=== PATIENT | female | born 1955 | race African-American/Black ===

== ENCOUNTER 2021-04-07 19:37 | Emergency (ER) | payer MEDICARE, OTHER ==
[2021-04-07 20:50] LABS: BASOPHIL 0.2 % (0-2); EOSINOPHIL 3.1 % (0-7); HCT 30.7 % (37.0-47.0); HGB 9.4 g/dl (12.5-16.0); LYMPHOCYTE 5.9 % (15-48); MCH 24.9 pg (25.0-31.0); MCHC 30.6 g/dL (32.0-36.0); MCV 81.2 fL (78.0-100.0); MONOCYTE 8.2 % (0-12); MPV 10.1 fL (6.0-9.5); NEUTROPHIL 81.6 % (41-80); NRBC 0.2; PLT 186 K/uL (150-400); RBC 3.78 M/uL (4.20-5.40); RDW 17.2 % (11.5-14.0); WBC 8.8 K/uL (4.0-10.5)
[2021-04-07 21:07] LABS: ALBUMIN 2.6 g/dL (3.4-5.0); BILIRUBIN - TOTAL 0.6 mg/dL (0.2-1.0); BUN/CREAT RATIO (CALC) 10.6 RATIO; CREATININE 0.94 mg/dL (0.51-0.95); GLOBULIN (CALCULATION) 3.7 g/dL; TOTAL PROTEIN 6.3 g/dL (6.4-8.2)
[2021-04-07 21:12] LABS: LACTIC ACID 1.5 mmol/L (0.4-1.9)
[2021-04-07 21:59] LABS: MAGNESIUM 1.8 mg/dL (1.8-2.4); PHOSPHORUS 1.5 mg/dL (2.6-4.7)
[2021-04-08 00:10] LABS: BILIRUBIN 2+ mg/dL (NEGATIVE); BLOOD 3+ Ery/uL (NEGATIVE); CLARITY CLOUDY (CLEAR); COLOR YELLOW (YELLOW); GLUCOSE (U) NORMAL (NORMAL); LEUKOCYTES 2+ Leu/uL (NEGATIVE); NITRITE NEGATIVE (NEGATIVE); PROTEIN 1+ mg/dL (NEGATIVE)
[2021-04-08] MEDS ORDERED: MACRODANTIN50 MG PO (00:39)
[2021-04-08 00:41] LABS: BACTERIA 1+; URINARY RBC 20-50; URINARY WBC TNTC
[2021-04-09] MEDS ORDERED: VALSARTAN160 MG PO (04:50)
[2021-04-09] MEDS ORDERED: HCTZ25 MG PO (04:51)
[2021-04-09] MEDS ORDERED: DILTIAZEM 24HR240 M1 PO (04:51)
[2021-04-09] MEDS ORDERED: EZETIMIBE10 MG PO (04:52)
[2021-04-09] MEDS ORDERED: LASIX80 MG PO (04:53)
[2021-04-09] MEDS ORDERED: MELOXICAM15 MG PO (04:53)
[2021-04-09] MEDS ORDERED: OXYBUTYNIN CHLOR5 MG PO (04:55)
[2021-04-09] MEDS ORDERED: PANTOPRAZOLE SO40 MG PO (04:56)
[2021-04-09] MEDS ORDERED: SIMVASTATIN40 MG PO (04:57)
[2021-04-09] MEDS ORDERED: POTASSIUM CHLO10 ME1 PO (04:57)
== END 2021-04-08 01:30 | disposition home or self-care (01) ==
LOC: FER 19:37
PROVIDERS: Emergency Medicine
DX: R53.1 Weakness (principal); N39.0 Urinary tract infection, site not specified; I10 Essential (primary) hypertension; Z20.822 Contact with and (suspected) exposure to COVID-19; Z98.84 Bariatric surgery status; Z98.890 Other specified postprocedural states
CPT/HCPCS: 36415; 71045; 80053; 81001; 83605; 83735; 84100; 85025; 87040; 87076; 87088; 87186; J0696; J7030

== ENCOUNTER 2021-04-08 22:00 | Day surgery (SDCO) | payer MEDICARE, OTHER ==
[~2021-04-08] VITALS: Ht 154.9 cm; Wt 200.1 kg
[~2021-04-08 22:00] MED LIST: MACRODANTIN50 MG PO
[2021-04-09] MEDS ORDERED: VALSARTAN160 MG PO (04:50)
[2021-04-09] MEDS ORDERED: HCTZ25 MG PO (04:51)
[2021-04-09] MEDS ORDERED: DILTIAZEM 24HR240 M1 PO (04:51)
[2021-04-09] MEDS ORDERED: EZETIMIBE10 MG PO (04:52)
[2021-04-09] MEDS ORDERED: LASIX80 MG PO (04:53)
[2021-04-09] MEDS ORDERED: MELOXICAM15 MG PO (04:53)
[2021-04-09] MEDS ORDERED: OXYBUTYNIN CHLOR5 MG PO (04:55)
[2021-04-09] MEDS ORDERED: PANTOPRAZOLE SO40 MG PO (04:56)
[2021-04-09] MEDS ORDERED: SIMVASTATIN40 MG PO (04:57)
[2021-04-09] MEDS ORDERED: POTASSIUM CHLO10 ME1 PO (04:57)
--- NOTE | 2021-04-09 11:43 | NUR ---
ADVISED DR. DRISCOLL PT. IS OBS. HE IS UNSURE AT THIS TIME IS HE WILL CHANGE HER TO INPT OR NOT.
[2021-04-10 05:30] LABS: BASOPHIL 0.5 % (0-2); EOSINOPHIL 5.6 & (0-7); HCT 32.5 % (37.0-47.0); LYMPHOCYTE 10.2 % (15-48); MCH 24.4 pg (25.0-31.0); MCHC 30.8 g/dL (32.0-36.0); MCV 79.5 fL (78.0-100.0); MONOCYTE 9.8 % (0-12); MPV 10.2 fL (6.0-9.5); NEUTROPHIL 69.4 % (41-80); PLT 238 K/uL (150-400); RBC 4.09 M/uL (4.20-5.40); RDW 16.8 % (11.5-14.0); WBC 7.98 K/uL (4.0-10.5)
[2021-04-10 05:47] LABS: BUN/CREAT RATIO (CALC) 10.9 RATIO; CREATININE 0.64 mg/dL (0.51-0.95); POTASSIUM 3.7 mmol/L (3.5-5.1)
== END 2021-04-11 23:19 | disposition other institution (70) ==
LOC: FER 22:00 → FMS 04-09 01:24
PROVIDERS: Nurse Practitioner; ADMIT Internal Medicine
DX: R29.6 Repeated falls (principal); R26.89 Other abnormalities of gait and mobility; N30.01 Acute cystitis with hematuria; I10 Essential (primary) hypertension; K21.9 Gastro-esophageal reflux disease without esophagitis; M19.90 Unspecified osteoarthritis, unspecified site; G47.30 Sleep apnea, unspecified; E66.01 Morbid (severe) obesity due to excess calories; Z98.84 Bariatric surgery status; Z79.899 Other long term (current) drug therapy; Z20.822 Contact with and (suspected) exposure to COVID-19; Z86.79 Personal history of other diseases of the circulatory system
CPT/HCPCS: 36415; 73560; 73610; 80048; 85025; 97110; 97161; 97166; 97530-GP; 97535; G0378; J0696; J2405; J7030; Q0169; U0002

== ENCOUNTER 2021-04-16 17:34 | Day surgery (SDCO) | payer MEDICARE, OTHER ==
[~2021-04-16] VITALS: Ht 154.9 cm; Wt 203.2 kg
[~2021-04-16 17:34] MED LIST changes: +DILTIAZEM 24HR240 M1 PO; +EZETIMIBE10 MG PO; +HCTZ25 MG PO; +LASIX80 MG PO; +MELOXICAM15 MG PO; +OXYBUTYNIN CHLOR5 MG PO; +PANTOPRAZOLE SO40 MG PO; +POTASSIUM CHLO10 ME1 PO; +SIMVASTATIN40 MG PO; +VALSARTAN160 MG PO
[2021-04-16 18:39] LABS: BASOPHIL 0.3 % (0-2); EOSINOPHIL 0.5 % (0-7); HCT 39.2 % (37.0-47.0); HGB 11.8 g/dl (12.5-16.0); MCH 24.3 pg (25.0-31.0); MCHC 30.1 g/dL (32.0-36.0); MCV 80.7 fL (78.0-100.0); MONOCYTE 2.5 % (0-12); MPV 10.1 fL (6.0-9.5); NEUTROPHIL 89.9 % (41-80); NRBC 0.7; PLT 329 K/uL (150-400); RBC 4.86 M/uL (4.20-5.40); RDW 18.4 % (11.5-14.0); WBC 18.9 K/uL (4.0-10.5)
[2021-04-16 19:05] LABS: BILIRUBIN - TOTAL 0.9 mg/dL (0.2-1.0); BUN/CREAT RATIO (CALC) 6.6 RATIO; CREATININE 0.76 mg/dL (0.51-0.95); GLOBULIN (CALCULATION) 5.1 g/dL; POTASSIUM 5.3 mmol/L (3.5-5.1); TOTAL PROTEIN 8.1 g/dL (6.4-8.2)
[2021-04-17 02:42] LABS: BILIRUBIN 2+ mg/dL (NEGATIVE); BLOOD 1+ Ery/uL (NEGATIVE); CLARITY CLEAR (CLEAR); COLOR YELLOW (YELLOW); GLUCOSE (U) NORMAL (NORMAL); LEUKOCYTES NEGATIVE Leu/uL (NEGATIVE); NITRITE NEGATIVE (NEGATIVE); PROTEIN NEGATIVE (NEGATIVE); SPECIFIC GRAVITY 1.025 (1.001-1.030); UROBILINOGEN 0.2 mg/dL (0.2-1.0)
[2021-04-17 02:49] LABS: BACTERIA 1+; MUCOUS MODERATE; URINARY RBC 20-50; URINARY WBC 20-50
[2021-04-17 05:56] LABS: BASOPHIL 0.3 % (0-2); EOSINOPHIL 1.5 % (0-7); HCT 29.2 % (37.0-47.0); HGB 8.8 g/dl (12.5-16.0); LYMPHOCYTE 5.1 % (15-48); MCH 24.1 pg (25.0-31.0); MCHC 30.1 g/dL (32.0-36.0); MONOCYTE 3.7 % (0-12); MPV 10.1 fL (6.0-9.5); NEUTROPHIL 87.8 % (41-80); NRBC 0.4; PLT 266 K/uL (150-400); RBC 3.65 M/uL (4.20-5.40); RDW 17.9 % (11.5-14.0); WBC 14.3 K/uL (4.0-10.5)
[2021-04-17 06:11] LABS: BUN/CREAT RATIO (CALC) 7.8 RATIO; CREATININE 0.64 mg/dL (0.51-0.95)
[2021-04-17 06:17] LABS: POTASSIUM 3.5 mmol/L (3.5-5.1)
[2021-04-18 06:08] LABS: BASOPHIL 0.2 % (0-2); EOSINOPHIL 4.8 % (0-7); HCT 29.3 % (37.0-47.0); HGB 8.9 g/dl (12.5-16.0); LYMPHOCYTE 8.2 % (15-48); MCH 23.9 pg (25.0-31.0); MCHC 30.4 g/dL (32.0-36.0); MCV 78.8 fL (78.0-100.0); MPV 10.2 fL (6.0-9.5); NEUTROPHIL 76.3 % (41-80); NRBC 0.4; PLT 277 K/uL (150-400); RBC 3.72 M/uL (4.20-5.40); RDW 17.6 % (11.5-14.0); WBC 8.1 K/uL (4.0-10.5)
[2021-04-18 06:24] LABS: BUN/CREAT RATIO (CALC) 5.1 RATIO; CREATININE 0.59 mg/dL (0.51-0.95); MAGNESIUM 1.8 mg/dL (1.8-2.4); POTASSIUM 3.8 mmol/L (3.5-5.1)
--- NOTE | 2021-04-18 13:04 | NUR ---
PT ADVISED NURSE, ABELARDO, THAT [facility] HAD CONTACTED HER AND ADVISED THAT SHE HAD BEEN ACCEPTED AT [facility]. TC TO JORGE AT [facility] [phone]. HE ADVISED ME THAT PT HAS BEEN ACCPETED AND MAY COME TODAY. ADVISED NURSE, ABELARDO AND DR. HERNANDEZ. PLEASE CALL [phone] FOR REPORT AND FAX DC SUMMARY TO [phone]
[2021-04-18] MEDS ORDERED: CEFDINIR300 MG PO (14:00)
== END 2021-04-18 17:10 ==
LOC: FER 17:34 → FMS 19:47
PROVIDERS: Emergency Medicine; Family Medicine; Hospitalist; ADMIT Internal Medicine
DX: A41.9 Sepsis, unspecified organism (principal); N30.01 Acute cystitis with hematuria; I89.0 Lymphedema, not elsewhere classified; R53.81 Other malaise; R29.6 Repeated falls; D64.9 Anemia, unspecified; I10 Essential (primary) hypertension; E78.5 Hyperlipidemia, unspecified; E66.01 Morbid (severe) obesity due to excess calories; M17.0 Bilateral primary osteoarthritis of knee; Z99.81 Dependence on supplemental oxygen; Z98.84 Bariatric surgery status; Z68.45 Body mass index [BMI] 70 or greater, adult; Z88.5 Allergy status to narcotic agent; Z88.1 Allergy status to other antibiotic agents; Z88.8 Allergy status to other drugs, medicaments and biological substances; Z79.891 Long term (current) use of opiate analgesic; Z79.899 Other long term (current) drug therapy; Z20.822 Contact with and (suspected) exposure to COVID-19
CPT/HCPCS: 36415; 71045; 73560; 80048; 80053; 81001; 83605; 83735; 83880; 84145; 85025; 87040; 87088; 90471; 90715; 94010; C9113; G0378; J0692; J1650; J3480; J7030; U0002

== ENCOUNTER 2021-12-17 06:53 | Inpatient (IN) | payer MEDICARE, OTHER ==
[~2021-12-17] VITALS: Ht 160 cm; Wt 192.1 kg
[~2021-12-17 06:53] MED LIST changes: +CEFDINIR300 MG PO
[2021-12-17 07:49] LABS: BASOPHIL 0.1 % (0-2); EOSINOPHIL 0.1 % (0-7); HCT 37.2 % (37.0-47.0); HGB 11.6 g/dl (12.5-16.0); LYMPHOCYTE 1.3 % (15-48); MCH 24.1 pg (25.0-31.0); MCHC 31.2 g/dL (32.0-36.0); MCV 77.2 fL (78.0-100.0); MONOCYTE 0.6 % (0-12); MPV 10.8 fL (6.0-9.5); NRBC 0; PLT 146 K/uL (150-400); RBC 4.82 M/uL (4.20-5.40); RDW 20.3 % (11.5-14.0); WBC 18.8 K/uL (4.0-10.5)
[2021-12-17 08:33] LABS: CORONAVIRUS 2019 SARS-COV-2 NEGATIVE (NEGATIVE); INFLUENZA A NAA NEGATIVE (NEGATIVE)
[2021-12-17 08:33] LABS: TOTAL CELL COUNT 100
[2021-12-17 08:37] LABS: BAND 3 % (0-10); LYMPHOCYTE(M) 3 % (15-48); MONOCYTE(M) 2 % (0-12); NEUTROPHILS(M) 85 % (41-80)
[2021-12-17 08:38] LABS: METAMYELOCYTE 6; MYELOCYTE 2; PLATELET ESTIMATE NORMAL; PLATELET MORPHOLOGY NORMAL
[2021-12-17 08:44] LABS: BILIRUBIN NEGATIVE (NEGATIVE); BLOOD 3+ Ery/uL (NEGATIVE); CLARITY CLEAR (CLEAR); COLOR YELLOW (YELLOW); GLUCOSE (U) NORMAL (NORMAL); LEUKOCYTES 2+ Leu/uL (NEGATIVE); NITRITE NEGATIVE (NEGATIVE); PROTEIN 1+ mg/dL (NEGATIVE); SPECIFIC GRAVITY 1.025 (1.001-1.030); UROBILINOGEN 0.2 mg/dL (0.2-1.0)
[2021-12-17 08:48] LABS: INR 1.72 (0.9-1.2); PROTHROMBIN TIME 19.4 SECONDS (11.8-13.4); PTT 56.9 SECONDS (24.4-34.7)
[2021-12-17 08:49] LABS: BACTERIA 4+; URINARY RBC 20-50; URINARY WBC 20-50
[2021-12-17 09:04] LABS: LACTIC ACID 8.3 mmol/L (0.4-1.9)
[2021-12-17 09:07] LABS: ALBUMIN 2.9 g/dL (3.4-5.0); BILIRUBIN - TOTAL 0.6 mg/dL (0.2-1.0); CREATININE 2.11 mg/dL (0.51-0.95); GLOBULIN (CALCULATION) 3.1 g/dL; POTASSIUM 3.2 mmol/L (3.5-5.1)
[2021-12-17 15:50] LABS: PHOSPHORUS 4.8 mg/dL (2.6-4.7); POTASSIUM 3.3 mmol/L (3.5-5.1)
--- NOTE | 2021-12-17 18:35 | NUR ---
BP MAP WERE LESS THAN 60 AND WAS NOTIFIED. LEVO WAS ORDERED AND TITRATED TO 6MCG/22.5ML HAD DIFFICULTY GETTING MONITOR TO TAKE PRESSURES PROPERLY MANUALS WERE DONE TO CONFIRM PATIENT WAS NOT ARTERIAL LINE CANDIDATE DUE TO ACTIVITY IN BED
[2021-12-18 04:28] LABS: BASOPHIL 0.5 % (0-2); EOSINOPHIL 0.1 % (0-7); HCT 36.6 % (37.0-47.0); HGB 11.3 g/dl (12.5-16.0); LYMPHOCYTE 2.3 % (15-48); MCHC 30.9 g/dL (32.0-36.0); MCV 77.7 fL (78.0-100.0); MONOCYTE 3.5 % (0-12); NRBC 0; PLT 106 K/uL (150-400); RBC 4.71 M/uL (4.20-5.40); WBC 24.5 K/uL (4.0-10.5)
[2021-12-18 04:40] LABS: NEUTROPHIL 85.9 % (41-80)
[2021-12-18 04:41] LABS: BUN/CREAT RATIO (CALC) 20.7 RATIO; CREATININE 2.22 mg/dL (0.51-0.95); PHOSPHORUS 4.8 mg/dL (2.6-4.7); POTASSIUM 3.9 mmol/L (3.5-5.1)
[2021-12-18] MEDS ORDERED: VALSARTAN160 MG PO (08:22)
[2021-12-18] MEDS ORDERED: CERTAVITE-ANTI1 EACH PO (08:23)
[2021-12-18] MEDS ORDERED: 3IN1 COMMODE (08:23)
--- NOTE | 2021-12-18 21:15 | NUR ---
PT DECLINED TO TAKE HER OXYBUTYNIN 5MG. SAYS SHE "DOESN'T NEED IT UNLESS SHE TAKES HER WATER PILL"
[2021-12-19 06:43] LABS: BASOPHIL 0.3 % (0-2); EOSINOPHIL 1.1 % (0-7); HCT 34.2 % (37.0-47.0); MCH 23.8 pg (25.0-31.0); MCHC 29.2 g/dL (32.0-36.0); MCV 81.2 fL (78.0-100.0); MONOCYTE 2.9 % (0-12); NRBC 0; PLT 69 K/uL (150-400); RBC 4.21 M/uL (4.20-5.40); RDW 20.6 % (11.5-14.0)
[2021-12-19 06:49] LABS: NEUTROPHIL 91.9 % (41-80); WBC 20.2 K/uL (4.0-10.5)
[2021-12-19 07:05] LABS: CREATININE 1.92 mg/dL (0.51-0.95); MAGNESIUM 2.1 mg/dL (1.8-2.4); POTASSIUM 3.6 mmol/L (3.5-5.1)
--- NOTE | 2021-12-19 10:49 | NUR ---
12/19/21 Ms. Christianson's daughter, Alesha Watson, lives in the home. They share the household responsibilities. - Ms. Christianson has PCP, Karol Liard. - She has a C-PAP and rollator. Will monitor for 02 needs.
[2021-12-20 04:04] LABS: BASOPHIL 0.4 % (0-2); EOSINOPHIL 2.5 % (0-7); HCT 30.5 % (37.0-47.0); HGB 9.6 g/dl (12.5-16.0); LYMPHOCYTE 5.4 % (15-48); MCH 24.1 pg (25.0-31.0); MCHC 31.5 g/dL (32.0-36.0); MCV 76.4 fL (78.0-100.0); MONOCYTE 4.6 % (0-12); NEUTROPHIL 86.4 % (41-80); NRBC 0; PLT 99 K/uL (150-400); RBC 3.99 M/uL (4.20-5.40); RDW 19.9 % (11.5-14.0); WBC 19.3 K/uL (4.0-10.5)
[2021-12-20 04:22] LABS: BUN/CREAT RATIO (CALC) 25.9 RATIO; CREATININE 1.58 mg/dL (0.51-0.95); MAGNESIUM 2.1 mg/dL (1.8-2.4); PHOSPHORUS 3.1 mg/dL (2.6-4.7); POTASSIUM 3.5 mmol/L (3.5-5.1)
[2021-12-21 08:23] LABS: BASOPHIL 0.5 % (0-2); EOSINOPHIL 2.8 % (0-7); HCT 31.8 % (37.0-47.0); HGB 9.7 g/dl (12.5-16.0); MCHC 30.5 g/dL (32.0-36.0); MCV 78.5 fL (78.0-100.0); MONOCYTE 10.8 % (0-12); NRBC 0.2; PLT 101 K/uL (150-400); RBC 4.05 M/uL (4.20-5.40); RDW 20.5 % (11.5-14.0); RETICULOCYTE COUNT 0.9 % (1.0-2.0); WBC 13.3 K/uL (4.0-10.5)
[2021-12-21 08:24] LABS: NEUTROPHIL 75.1 % (41-80)
[2021-12-21 13:29] LABS: BUN/CREAT RATIO (CALC) 23.8 RATIO; C-REACTIVE PROTEIN 10.7 mg/dL (<=0.90); CREATININE 1.26 mg/dL (0.51-0.95); POTASSIUM 4.2 mmol/L (3.5-5.1)
[2021-12-22 07:28] LABS: BASOPHIL 0.4 % (0-2); EOSINOPHIL 2.5 % (0-7); HCT 31.6 % (37.0-47.0); HGB 9.9 g/dl (12.5-16.0); LYMPHOCYTE 6.6 % (15-48); MCHC 31.3 g/dL (32.0-36.0); MCV 76.5 fL (78.0-100.0); MONOCYTE 13.2 % (0-12); MPV 10.8 fL (6.0-9.5); NEUTROPHIL 70.2 % (41-80); NRBC 0.3; PLT 130 K/uL (150-400); RBC 4.13 M/uL (4.20-5.40); RDW 19.8 % (11.5-14.0); WBC 14.6 K/uL (4.0-10.5)
[2021-12-22 07:50] LABS: ALBUMIN 1.9 g/dL (3.4-5.0); BILIRUBIN - TOTAL 0.2 mg/dL (0.2-1.0); BUN/CREAT RATIO (CALC) 17.6 RATIO; CREATININE 1.08 mg/dL (0.51-0.95); GLOBULIN (CALCULATION) 4.2 g/dL; MAGNESIUM 1.8 mg/dL (1.8-2.4); PHOSPHORUS 3.1 mg/dL (2.6-4.7); POTASSIUM 3.5 mmol/L (3.5-5.1); TOTAL PROTEIN 6.1 g/dL (6.4-8.2)
--- NOTE | 2021-12-22 10:07 | NUR ---
12/22/21 SNF recommendation was discussed with Ms. Christianson. She will consider placement in [place] only. Referrals have been submitted to [facility] is not in network with ,
--- NOTE | 2021-12-22 16:27 | NUR ---
12/22/21 [facility] has accepted patient pending insurance authorization.
[2021-12-23 06:42] LABS: BASOPHIL 0.5 % (0-2); EOSINOPHIL 2.8 % (0-7); HGB 9.9 g/dl (12.5-16.0); LYMPHOCYTE 6.6 % (15-48); MCH 23.9 pg (25.0-31.0); MCHC 30.9 g/dL (32.0-36.0); MCV 77.1 fL (78.0-100.0); MONOCYTE 8.6 % (0-12); MPV 10.6 fL (6.0-9.5); NRBC 0.6; PLT 184 K/uL (150-400); RBC 4.15 M/uL (4.20-5.40); RDW 19.9 % (11.5-14.0); WBC 16.2 K/uL (4.0-10.5)
[2021-12-23 07:18] LABS: BUN 18 mg/dL (7-18); BUN/CREAT RATIO (CALC) 18.8 RATIO; C-REACTIVE PROTEIN > 18.00 mg/dL (<=0.90); CHLORIDE 108 mmol/L (98-107); CO2 (BICARBONATE) 23 mmol/L (21-32); CPK 97 U/L (26-192); CREATININE 0.96 mg/dL (0.51-0.95); GLUCOSE 99 mg/dL (74-106); MAGNESIUM 1.6 mg/dL (1.8-2.4); POTASSIUM 3.9 mmol/L (3.5-5.1)
[2021-12-24 04:24] LABS: BASOPHIL 0.3 % (0-2); EOSINOPHIL 4.5 % (0-7); HCT 29.9 % (37.0-47.0); HGB 9.2 g/dl (12.5-16.0); LYMPHOCYTE 5.7 % (15-48); MCH 23.5 pg (25.0-31.0); MCHC 30.8 g/dL (32.0-36.0); MCV 76.3 fL (78.0-100.0); MONOCYTE 5.3 % (0-12); NEUTROPHIL 79.3 % (41-80); NRBC 0.4; PLT 250 K/uL (150-400); RBC 3.92 M/uL (4.20-5.40); RDW 19.9 % (11.5-14.0)
[2021-12-24 04:43] LABS: BUN/CREAT RATIO (CALC) 17.7 RATIO; CREATININE 0.96 mg/dL (0.51-0.95); POTASSIUM 3.7 mmol/L (3.5-5.1)
[2021-12-24 05:00] LABS: TOTAL CELL COUNT 100
[2021-12-24 05:01] LABS: BAND 3 % (0-10); BASOPHIL(M) 0 % (0-2); EOSINOPHIL(M) 1 % (0-7); LYMPHOCYTE(M) 9 % (15-48); MONOCYTE(M) 14 % (0-12); NEUTROPHILS(M) 73 % (41-80)
[2021-12-24 05:02] LABS: PLATELET ESTIMATE NORMAL; PLATELET MORPHOLOGY NORMAL
[2021-12-24] MEDS ORDERED: MELATONIN5 M2 PO (10:28)
[2021-12-24] MEDS ORDERED: TEMAZEPAM 15MG15 MG PO (10:28)
[2021-12-24] MEDS ORDERED: MUCINEX 600MG600 MG PO (10:28)
[2021-12-24] MEDS ORDERED: ACETAMINOPHEN500 M1 PO (10:28)
[2021-12-24] MEDS ORDERED: AMOX TR-K CLV1 EAC4 PO (10:28)
[2021-12-24] MEDS ORDERED: NORCO 5-325 TA1 EACH PO (10:28)
== END 2021-12-24 13:40 | DRG 871 ==
LOC: FER 06:53 → FICU 09:37
PROVIDERS: Emergency Medicine; Internal Medicine; ADMIT Internal Medicine
PROC: 3E03329 Introduction of Other Anti-infective into Peripheral Vein, Percutaneous Approach (ICD-10-PCS; principal; 2021-12-17)
PROC: 3E033XZ Introduction of Vasopressor into Peripheral Vein, Percutaneous Approach (ICD-10-PCS; 2021-12-17)
PROC: 0T9B70Z Drainage of Bladder with Drainage Device, Via Natural or Artificial Opening (ICD-10-PCS; 2021-12-17)
PROC: B24BZZZ Ultrasonography of Heart with Aorta (ICD-10-PCS; 2021-12-19)
DX: A41.51 Sepsis due to Escherichia coli [E. coli] (principal); R65.21 Severe sepsis with septic shock; J18.9 Pneumonia, unspecified organism; J96.01 Acute respiratory failure with hypoxia; G93.41 Metabolic encephalopathy; I21.A1 Myocardial infarction type 2; N17.0 Acute kidney failure with tubular necrosis; N30.00 Acute cystitis without hematuria; M62.82 Rhabdomyolysis; Z68.44 Body mass index [BMI] 60.0-69.9, adult; I47.1 Supraventricular tachycardia; Z20.822 Contact with and (suspected) exposure to COVID-19; R60.1 Generalized edema; E66.01 Morbid (severe) obesity due to excess calories; K21.9 Gastro-esophageal reflux disease without esophagitis; T39.395A Adverse effect of other nonsteroidal anti-inflammatory drugs [NSAID], initial encounter; N14.0 Analgesic nephropathy; I89.0 Lymphedema, not elsewhere classified; M17.0 Bilateral primary osteoarthritis of knee; M25.561 Pain in right knee; I07.1 Rheumatic tricuspid insufficiency; I73.9 Peripheral vascular disease, unspecified; N32.81 Overactive bladder; G47.33 Obstructive sleep apnea (adult) (pediatric); I10 Essential (primary) hypertension; E78.5 Hyperlipidemia, unspecified; R54 Age-related physical debility; Z98.84 Bariatric surgery status; Z88.8 Allergy status to other drugs, medicaments and biological substances; Z79.899 Other long term (current) drug therapy; Z98.42 Cataract extraction status, left eye
CPT/HCPCS: 36415; 36600; 71045; 71250; 73501; 73560; 80048; 80053; 80202; 81001; 82550; 82607; 82746; 82803; 82962; 83540; 83550; 83605; 83735; 83880; 84100; 84132; 84145; 84484; 85025; 85610; 85730; 86140; 87040; 87076; 87077; 87088; 87186; 93005; 94667; 94668; 96365; 96366; 96367; 97110; 97162; 97166; 97530; 97530-GP; J1650; J2185; J2543; J2916; J3370; J3475; J3480; J7030; J7050; J7070; U0002

== ENCOUNTER 2022-04-09 09:40 | Inpatient (IN) | payer MEDICARE, OTHER ==
[~2022-04-09] VITALS: Ht 162.6 cm; Wt 182.9 kg
[~2022-04-09 09:40] MED LIST changes: +3IN1 COMMODE; +ACETAMINOPHEN500 M1 PO; +AMOX TR-K CLV1 EAC4 PO; +CERTAVITE-ANTI1 EACH PO; +MELATONIN5 M2 PO; +MUCINEX 600MG600 MG PO; +NORCO 5-325 TA1 EACH PO; +TEMAZEPAM 15MG15 MG PO
[2022-04-09 10:18] LABS: BASOPHIL 0.2 % (0-2); EOSINOPHIL 0.3 % (0-7); HCT 34.5 % (37.0-47.0); LYMPHOCYTE 1.2 % (15-48); MCH 25.6 pg (25.0-31.0); MCHC 31.9 g/dL (32.0-36.0); MCV 80.4 fL (78.0-100.0); MONOCYTE 0.5 % (0-12); MPV 10.5 fL (6.0-9.5); NRBC 0; PLT 174 K/uL (150-400); RBC 4.29 M/uL (4.20-5.40); RDW 15.9 % (11.5-14.0); WBC 10.7 K/uL (4.0-10.5)
[2022-04-09 10:31] LABS: NEUTROPHIL 96.7 % (41-80)
[2022-04-09 10:43] LABS: CREATININE 1.32 mg/dL (0.51-0.95); POTASSIUM 2.8 mmol/L (3.5-5.1)
[2022-04-09 10:49] LABS: ALBUMIN 2.8 g/dL (3.4-5.0); BILIRUBIN - TOTAL 0.7 mg/dL (0.2-1.0); GLOBULIN (CALCULATION) 2.8 g/dL; TOTAL PROTEIN 5.6 g/dL (6.4-8.2)
[2022-04-09 11:19] LABS: BILIRUBIN NEGATIVE (NEGATIVE); BLOOD 3+ Ery/uL (NEGATIVE); COLOR YELLOW (YELLOW); GLUCOSE (U) NORMAL (NORMAL); LEUKOCYTES 3+ Leu/uL (NEGATIVE); NITRITE POSITIVE (NEGATIVE); PROTEIN 2+ mg/dL (NEGATIVE); SPECIFIC GRAVITY 1.025 (1.001-1.030); UROBILINOGEN 0.2 mg/dL (0.2-1.0); pH 5.5 (5.0-9.0)
[2022-04-09 11:20] LABS: CLARITY CLOUDY (CLEAR)
[2022-04-09 11:25] LABS: BACTERIA 2+; URINARY WBC TNTC
[2022-04-09 11:50] LABS: CORONAVIRUS 2019 SARS-COV-2 NEGATIVE (NEGATIVE); INFLUENZA A NAA NEGATIVE (NEGATIVE)
[2022-04-09] MEDS ORDERED: CARDIZEM60 MG PO (15:46)
[2022-04-10 05:57] LABS: BASOPHIL 0.2 % (0-2); EOSINOPHIL 1.8 % (0-7); HCT 32.8 % (37.0-47.0); HGB 10.1 g/dl (12.5-16.0); LYMPHOCYTE 3.8 % (15-48); MCH 25.4 pg (25.0-31.0); MCHC 30.8 g/dL (32.0-36.0); MCV 82.4 fL (78.0-100.0); MONOCYTE 6.6 % (0-12); MPV 10.9 fL (6.0-9.5); NEUTROPHIL 85.6 % (41-80); NRBC 0; PLT 152 K/uL (150-400); RBC 3.98 M/uL (4.20-5.40); WBC 14.4 K/uL (4.0-10.5)
[2022-04-11 06:15] LABS: BASOPHIL 0.3 % (0-2); EOSINOPHIL 4.5 % (0-7); HCT 31.9 % (37.0-47.0); HGB 10.1 g/dl (12.5-16.0); LYMPHOCYTE 7.9 % (15-48); MCH 25.8 pg (25.0-31.0); MCHC 31.7 g/dL (32.0-36.0); MCV 81.6 fL (78.0-100.0); MONOCYTE 8.8 % (0-12); MPV 10.7 fL (6.0-9.5); NEUTROPHIL 77.8 % (41-80); NRBC 0.2; PLT 171 K/uL (150-400); RBC 3.91 M/uL (4.20-5.40); WBC 10.6 K/uL (4.0-10.5)
[2022-04-11 06:40] LABS: BUN/CREAT RATIO (CALC) 16.7 RATIO; CREATININE 0.72 mg/dL (0.51-0.95); POTASSIUM 3.3 mmol/L (3.5-5.1)
[2022-04-12 07:31] LABS: BASOPHIL 0.7 % (0-2); EOSINOPHIL 6.5 % (0-7); HCT 31.8 % (37.0-47.0); LYMPHOCYTE 15.4 % (15-48); MCH 25.3 pg (25.0-31.0); MCHC 31.4 g/dL (32.0-36.0); MCV 80.5 fL (78.0-100.0); MONOCYTE 11.9 % (0-12); MPV 10.7 fL (6.0-9.5); NEUTROPHIL 63.4 % (41-80); NRBC 0; PLT 184 K/uL (150-400); RBC 3.95 M/uL (4.20-5.40); WBC 6.8 K/uL (4.0-10.5)
[2022-04-12 08:07] LABS: ALBUMIN 2.1 g/dL (3.4-5.0); BILIRUBIN - TOTAL 0.2 mg/dL (0.2-1.0); BUN/CREAT RATIO (CALC) 12.9 RATIO; C-REACTIVE PROTEIN 17.9 mg/dL (<=0.90); CREATININE 0.7 mg/dL (0.51-0.95); GLOBULIN (CALCULATION) 4.3 g/dL; MAGNESIUM 1.7 mg/dL (1.8-2.4); POTASSIUM 3.3 mmol/L (3.5-5.1); TOTAL PROTEIN 6.4 g/dL (6.4-8.2)
[2022-04-13] MEDS ORDERED: CEFDINIR300 MG PO (12:44)
[2022-04-13] MEDS ORDERED: CLOTRIMAZOLE TOP (12:48)
== END 2022-04-13 13:25 | disposition home health service (06) | DRG 872 ==
LOC: FER 09:40 → FTCU 13:00
PROVIDERS: Emergency Medicine; Internal Medicine; ADMIT Internal Medicine
DX: A41.59 Other Gram-negative sepsis (principal); N30.00 Acute cystitis without hematuria; N17.9 Acute kidney failure, unspecified; Z68.44 Body mass index [BMI] 60.0-69.9, adult; Z16.24 Resistance to multiple antibiotics; R65.20 Severe sepsis without septic shock; R09.02 Hypoxemia; Z20.822 Contact with and (suspected) exposure to COVID-19; B96.1 Klebsiella pneumoniae [K. pneumoniae] as the cause of diseases classified elsewhere; D50.9 Iron deficiency anemia, unspecified; R77.8 Other specified abnormalities of plasma proteins; I11.0 Hypertensive heart disease with heart failure; I50.9 Heart failure, unspecified; E66.01 Morbid (severe) obesity due to excess calories; M17.11 Unilateral primary osteoarthritis, right knee; M23.41 Loose body in knee, right knee; K21.9 Gastro-esophageal reflux disease without esophagitis; R74.01 Elevation of levels of liver transaminase levels; I73.9 Peripheral vascular disease, unspecified; G47.00 Insomnia, unspecified; I36.1 Nonrheumatic tricuspid (valve) insufficiency; J42 Unspecified chronic bronchitis; E78.5 Hyperlipidemia, unspecified; Z79.899 Other long term (current) drug therapy; Z98.84 Bariatric surgery status; Z80.9 Family history of malignant neoplasm, unspecified; Z88.8 Allergy status to other drugs, medicaments and biological substances
CPT/HCPCS: 36415; 36600; 71045; 73560; 80048; 80053; 81001; 82150; 82607; 82803; 83540; 83550; 83605; 83735; 83880; 84145; 84484; 85025; 86140; 87040; 87076; 87077; 87088; 87186; 93005; 94762; 97162; 97166; 97530; 97530-GP; 97535; J0696; J1170; J1650; J1940; J2543; J3370; J7030; J7040; U0002